=== PATIENT | male | born 1970 | race Caucasian/White ===

== ENCOUNTER 2022-04-10 09:35 | Observation (INO) | payer OTHER ==
[2022-04-10 10:34] LABS: Absolute Lymphocytes (CBC) 2.1 K/uL (0.7-4.9); Hematocrit 47.1 % (39.6-49.0); Lymphocytes % 33.8 % (15.3-44.8); MPV 7.5 fL (7.6-11.3); RBC Red Blood Cell Count 5.36 M/uL (4.33-5.43)
--- NOTE | 2022-04-10 10:44 | RAD REPORT ---
EXAM DESCRIPTION: RAD - Chest Single View - 04/10/2022 10:39 am CLINICAL HISTORY: CHEST PAIN Chest pain. COMPARISON: No comparisons FINDINGS: Portable technique limits examination quality. The lungs are grossly clear. The heart is normal in size. No displaced fractures. IMPRESSION: No acute intrathoracic process suspected.
--- NOTE | 2022-04-10 11:30 | ER ---
Nurse's Notes [facility] Name: Tomas Peng Age: 51 yrs Sex: Male : 1970 Arrival Date: 04/10/2022 Time: 09:38 Bed 14 Private MD: Dominguez Neumann E Diagnosis: Chest pain, unspecified Presentation: 04/10 09:48 Chief complaint: Patient states: left sided chest pain up into left side of neck , iw intermittent since , today was dizzy. Coronavirus screen: At this time, the client does not indicate any symptoms associated with coronavirus-19. Ebola Screen: Patient negative for fever greater than or equal to 101.5 degrees Fahrenheit, and additional compatible Ebola Virus Disease symptoms Patient denies exposure to infectious person. Patient denies travel to an Ebola-affected area in the 21 days before illness onset. No symptoms or risks identified at this time. Initial Sepsis Screen: Does the patient meet any 2 criteria? No. Patient's initial sepsis screen is negative. Does the patient have a suspected source of infection? No. Patient's initial sepsis screen is negative. Risk Assessment: Do you want to hurt yourself or someone else? Patient reports no desire to harm self or others. Onset of symptoms was April 07, 2022. 09:48 Method Of Arrival: Ambulatory iw 09:48 Acuity: AYAN 3 iw Historical: - Allergies: 09:50 No Known Allergies; iw - Home Meds: 09:50 gemfibrozil 600 mg Oral tab 1 tab 2 times per day [Active]; iw - PMHx: 09:50 Hypertensive disorder; iw - Immunization history:: Client reports receiving the 2nd dose of the Covid vaccine. - Social history:: Smoking status: Patient denies any tobacco usage or history of. - Family history:: not pertinent. - Hospitalizations: : No recent hospitalization is reported. Screenin:55 Abuse screen: Denies threats or abuse. Nutritional screening: No deficits noted. tw2 Tuberculosis screening: No symptoms or risk factors identified. Fall Risk None identified. Assessment: 09:55 Reassessment: provider at bedside at this time. tw2 09:56 Pain: Pain began since . tw2 10:00 Pain: Pain radiates to left arm and left side of neck. tw2 10:00 General: Appears in no apparent distress. Behavior is cooperative, appropriate for age, tw2 anxious. Neuro: Level of Consciousness is awake, alert, obeys commands, Oriented to person, place, time, situation. Cardiovascular: Reports chest pain. Respiratory: Airway is patent Respiratory effort is even, unlabored. 10:54 Reassessment: Patient appears in no apparent distress at this time. No changes from tw2 previously documented assessment. Patient and/or family updated on plan of care and expected duration. Pain level reassessed. Patient is alert, oriented x 3, equal unlabored respirations, skin warm/dry/pink. 11:50 Reassessment: Patient appears in no apparent distress at this time. No changes from tw2 previously documented assessment. Patient and/or family updated on plan of care and expected duration. Pain level reassessed. Patient is alert, oriented x 3, equal unlabored respirations, skin warm/dry/pink. 12:50 Reassessment: Patient appears in no apparent distress at this time. No changes from tw2 previously documented assessment. Patient and/or family updated on plan of care and expected duration. Pain level reassessed. Patient is alert, oriented x 3, equal unlabored respirations, skin warm/dry/pink. 13:50 Reassessment: Patient appears in no apparent distress at this time. No changes from tw2 previously documented assessment. Patient and/or family updated on plan of care and expected duration. Pain level reassessed. Patient is alert, oriented x 3, equal unlabored respirations, skin warm/dry/pink. 14:41 Reassessment: Patient appears in no apparent distress at this time. No changes from tw2 previously documented assessment. Patient and/or family updated on plan of care and expected duration. Pain level reassessed. Patient is alert, oriented x 3, equal unlabored respirations, skin warm/dry/pink. 15:30 Reassessment: Patient appears in no apparent distress at this time. No changes from tw2 previously documented assessment. Patient and/or family updated on plan of care and expected duration. Pain level reassessed. Patient is alert, oriented x 3, equal unlabored respirations, skin warm/dry/pink. 16:26 Reassessment: Patient appears in no apparent distress at this time. No changes from tw2 previously documented assessment. Patient and/or family updated on plan of care and expected duration. Pain level reassessed. Patient is alert, oriented x 3, equal unlabored respirations, skin warm/dry/pink. 17:54 Reassessment: Patient appears in no apparent distress at this time. No changes from tw2 previously documented assessment. Patient and/or family updated on plan of care and expected duration. Pain level reassessed. Patient is alert, oriented x 3, equal unlabored respirations, skin warm/dry/pink. pt given supper tray at this time. pt placed in hospital bed at this time for comfort. 18:52 Reassessment: Patient appears in no apparent distress at this time. No changes from tw2 previously documented assessment. Patient and/or family updated on plan of care and expected duration. Pain level reassessed. Patient is alert, oriented x 3, equal unlabored respirations, skin warm/dry/pink. 19:40 Reassessment: Patient appears in no apparent distress at this time. No changes from lg3 previously documented assessment. Patient and/or family updated on plan of care and expected duration. Pain level reassessed. Patient is alert, oriented x 3, equal unlabored respirations, skin warm/dry/pink. Patient states feeling better. 22:55 General: attempted to call report. nurse not available at this time. . lg3 23:26 General: attempted to call report. nurse not available . lg3 Vital Signs: 09:48 BP 130 / 89; Pulse 71; Resp 16; Temp 97.1; Pulse Ox 100% on R/A; Weight 106.59 kg; iw Height 5 ft. 10 in. (177.80 cm); 10:54 BP 138 / 93; Pulse 74; Resp 18; Pulse Ox 95% on R/A; tw2 11:40 BP 143 / 93; Pulse 60; Resp 19; Pulse Ox 98% on R/A; tw2 12:40 BP 145 / 96; Pulse 67; Resp 17; Pulse Ox 95% on R/A; tw2 13:40 BP 145 / 92; Pulse 61; Resp 17; Pulse Ox 99% on R/A; tw2 14:40 BP 138 / 93; Pulse 62; Resp 17; Pulse Ox 97% on R/A; tw2 15:30 BP 139 / 86; Pulse 65; Resp 17; Pulse Ox 97% on R/A; tw2 16:25 BP 143 / 88; Pulse 66; Resp 20; Pulse Ox 99% on R/A; tw2 17:55 BP 150 / 94; Pulse 74; Resp 17; Pulse Ox 99% on R/A; tw2 18:52 BP 126 / 85; Pulse 66; Resp 16; Pulse Ox 97% on R/A; tw2 09:48 Body Mass Index 33.72 (106.59 kg, 177.80 cm) ED Course: 09:38 Patient arrived in ED. am2 09:38 Dominguez Neumann MD is Private Physician. am2 09:50 Triage completed. iw 09:51 Arm band placed on. iw 09:52 Mao Zamorano MD is Attending Physician. rn 09:54 Nichol Medina RN is Primary Nurse. tw2 09:55 Bed in low position. Call light in reach. monitor tech on. Pulse ox on. NIBP on. tw2 09:55 Patient maintains SpO2 saturation greater than 95% on room air. tw2 10:03 EKG done, by ED staff, reviewed by Mao Zamorano MD. em1 10:12 Inserted saline lock: 20 gauge in right forearm, using aseptic technique. Blood tw2 collected. 10:42 XRAY Chest (1 view) In Process Unspecified. EDMS 11:29 Tyrone Wylie MD is Hospitalizing Provider. rn 11:36 SARS-COV-2 RT PCR (Document "Date of Onset" if Symptomatic) Sent. tw2 12:09 Singh James is Hospitalizing Provider. rn 19:25 Primary Nurse role handed off by Nichol Medina RN mw2 22:55 No provider procedures requiring assistance completed. Patient admitted, IV remains in lg3 place. intact, No redness/swelling at site. 23:10 Valerie Pruitt, RN is Primary Nurse. lg3 Administered Medications: No medications were administered Medication: 09:56 VIS not applicable for this client. tw2 Outcome: 11:29 Decision to Hospitalize by Provider. rn 22:56 Admitted to Tele accompanied by nurse, via wheelchair, room 430, Report called to Latrell Jerry 22:56 Condition: stable 06/07 01:25 Patient left the ED. lg3 Signatures: Dispatcher [employer] EDMS Aleena Vee RN RN iw Mao Zamorano MD MD rn Martinez, Eric em1 Nichol Medina RN RN tw2 Sasha Handley am2 Gayle Phama mw2 Valerie Pruitt, RN RN lg3 Corrections: (The following items were deleted from the chart) 04/10 17:55 17:54 Reassessment: Patient appears in no apparent distress at this time. No changes tw2 from previously documented assessment. Patient and/or family updated on plan of care and expected duration. Pain level reassessed. Patient is alert, oriented x 3, equal unlabored respirations, skin warm/dry/pink. pt given supper tray at this time. tw2 23:08 22:55 Reassessment: Patient appears in no apparent distress at this time. No changes lg3 from previously documented assessment. Patient and/or family updated on plan of care and expected duration. Pain level reassessed. Patient is alert, oriented x 3, equal unlabored respirations, skin warm/dry/pink. Patient states feeling better. lg3
--- NOTE | 2022-04-10 11:30 | EDPHYS ---
Physician Documentation [facility] Name: Tomas Peng Age: 51 yrs Sex: Male : 1970 Arrival Date: 04/10/2022 Time: 09:38 Bed 14 Private MD: Dominguez Neumann E ED Physician Mao Zamorano HPI: 04/10 11:17 This 51 yrs old Male presents to ER via Ambulatory with complaints of Chest Pain, rn Dizziness, Headache. 11:17 The patient or guardian reports chest pain that is located primarily in the anterior rn chest wall, left. Onset: yesterday. The pain radiates to the left arm, the left shoulder, left neck, left jaw. Associated signs and symptoms: Pertinent positives: dizziness, headache, Pertinent negatives: abdominal pain, shortness of breath, syncope, vomiting. The chest pain is described as aching. Duration: The patient or guardian reports multiple episodes, that are intermittent. Modifying factors: The symptoms are alleviated by nothing. the symptoms are aggravated by nothing. Severity of pain: At its worst the pain was moderate in the emergency department the pain has improved. The patient has experienced a previous episode. The patient has been recently seen by a physician:. Sent by pcp and work for chest pain, left sided, radiates to left arm and jaw/neck, intermittent and last for a few minutes. States has also been having sob with exertion, no longer smokes, and doesn't feel ill. No trauma. . Historical: - Allergies: 09:50 No Known Allergies; iw - Home Meds: 09:50 gemfibrozil 600 mg Oral tab 1 tab 2 times per day [Active]; iw - PMHx: 09:50 Hypertensive disorder; iw - Immunization history:: Client reports receiving the 2nd dose of the Covid vaccine. - Social history:: Smoking status: Patient denies any tobacco usage or history of. - Family history:: not pertinent. - Hospitalizations: : No recent hospitalization is reported. ROS: 11:17 Constitutional: Negative for fever, chills, and weight loss, Eyes: Negative for injury, rn pain, redness, and discharge, Neck: Negative for injury, pain, and swelling, Cardiovascular: + chest pain Respiratory: + sob during exercise Abdomen/GI: Negative for abdominal pain, nausea, vomiting, diarrhea, and constipation, Back: Negative for injury and pain, MS/Extremity: Negative for injury and deformity, Skin: Negative for injury, rash, and discoloration, Neuro: Negative for weakness, numbness, tingling, and seizure. Exam: 11:17 Constitutional: This is a well developed, well nourished patient who is awake, alert, rn and in no acute distress. Head/Face: Normocephalic, atraumatic. Eyes: Periorbital areas with no swelling, redness, or edema. Cardiovascular: Regular rate and rhythm. No pulse deficits. Respiratory: No increased work of breathing, no retractions or nasal flaring. Abdomen/GI: Soft, non-tender Skin: Warm, dry MS/ Extremity: Pulses equal, no cyanosis. Neurovascular intact. Full, normal range of motion. Equal circumference. Neuro: Awake and alert, GCS 15 Vital Signs: 09:48 BP 130 / 89; Pulse 71; Resp 16; Temp 97.1; Pulse Ox 100% on R/A; Weight 106.59 kg; iw Height 5 ft. 10 in. (177.80 cm); 10:54 BP 138 / 93; Pulse 74; Resp 18; Pulse Ox 95% on R/A; tw2 11:40 BP 143 / 93; Pulse 60; Resp 19; Pulse Ox 98% on R/A; tw2 12:40 BP 145 / 96; Pulse 67; Resp 17; Pulse Ox 95% on R/A; tw2 13:40 BP 145 / 92; Pulse 61; Resp 17; Pulse Ox 99% on R/A; tw2 14:40 BP 138 / 93; Pulse 62; Resp 17; Pulse Ox 97% on R/A; tw2 15:30 BP 139 / 86; Pulse 65; Resp 17; Pulse Ox 97% on R/A; tw2 16:25 BP 143 / 88; Pulse 66; Resp 20; Pulse Ox 99% on R/A; tw2 17:55 BP 150 / 94; Pulse 74; Resp 17; Pulse Ox 99% on R/A; tw2 18:52 BP 126 / 85; Pulse 66; Resp 16; Pulse Ox 97% on R/A; tw2 09:48 Body Mass Index 33.72 (106.59 kg, 177.80 cm) iw MDM: 09:52 Patient medically screened. rn 11:27 Differential diagnosis: acute myocardial infarction, acute pericarditis, anxiety, rn coronary artery disease chest wall pain, cholecystitis, Cholelithiasis costochondritis, esophagitis, gastritis, gastroesophageal reflux disease (GERD). Data reviewed: vital signs, nurses notes, lab test result(s), EKG, radiologic studies, plain films, and as a result, I will admit patient. Counseling: I had a detailed discussion with the patient and/or guardian regarding: the historical points, exam findings, and any diagnostic results supporting the discharge/admit diagnosis, lab results, radiology results, the need for further work-up and treatment in the hospital. Response to treatment: There is no appreciated change of the patient's symptoms at this time, and as a result, I will admit patient. Admission orders: after a detailed discussion of the patient's condition and case, the admit orders are written by me. ED course: Given ASA prior to arrival, concerning story, stable vitals, will admit for further cardiac evaluation. Sent in by pcp. No recent cardiac evaluation. . 04/10 10:04 Order name: Basic Metabolic Panel; Complete Time: 13:45 rn 04/10 10:04 Order name: CBC with Diff; Complete Time: 11:27 rn 04/10 10:04 Order name: NT PRO-BNP; Complete Time: 13:45 rn 04/10 10:04 Order name: Troponin HS; Complete Time: 13:45 rn 04/10 11:27 Order name: SARS-COV-2 RT PCR (Document "Date of Onset" if Symptomatic); Complete Time: rn 13:45 04/11 01:03 Order name: Troponin High Sensitivity EDKY 04/10 10:04 Order name: XRAY Chest (1 view); Complete Time: 11:27 rn 04/10 10:04 Order name: EKG; Complete Time: 10:05 rn 04/10 10:04 Order name: Cardiac monitoring; Complete Time: 10:12 rn 04/10 10:04 Order name: EKG - Nurse/Tech; Complete Time: 10:05 rn 04/10 10:04 Order name: IV Saline Lock; Complete Time: 10:12 rn 04/10 10:04 Order name: Labs collected and sent; Complete Time: 10:12 rn 04/10 14:45 Order name: Diet Ada 1800 Rodrigo; Complete Time: 14:45 tw2 04/11 01:03 Order name: Lipid Profile EDKY 04/10 10:04 Order name: O2 Per Protocol; Complete Time: 10:05 rn 04/10 10:04 Order name: O2 Sat Monitoring; Complete Time: 10:05 rn Administered Medications: No medications were administered Disposition Summary: 04/10/22 11:29 Hospitalization Ordered Hospitalization Status: Observation rn Condition: Stable rn Problem: new rn Symptoms: have improved rn Bed/Room Type: Standard rn Provider: Singh James(04/10/22 12:09) rn Location: Telemetry/MedSurg (observation)(04/10/22 22:41) mw Room Assignment: 430(04/10/22 22:41) mw Diagnosis - Chest pain, unspecified 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
--- NOTE | 2022-04-10 13:18 | EKG ---
Test Date: 2022-04-10 Test Time: 09:56:35 Financial Examiner: BRUCE MEASUREMENT RESULTS: Intervals: Rate: 61 LA: 168 QRSD: 96 QT: 406 QTc: 408 Rowlett: P: LA: 168 QRS: 29 T: 39 INTERPRETIVE STATEMENTS: Normal sinus rhythm Normal ECG No previous ECG available for comparison Electronically Signed On 04-10-22 13:17:59 CDT by Natan Marie
[2022-04-10 13:23] LABS: Potassium 4.1 mmol/L (3.5-5.1); Troponin High Sensitivity 5.3 pg/mL (<58.9)
--- NOTE | 2022-04-10 16:05 | P.HP ---
Certification for Inpatient Patient admitted to: Observation With expected LOS: <2 Midnights Practitioner: I am a practitioner with admitting privileges, knowledge of patient current condition, hospital course, and medical plan of care. Services: Services provided to patient in accordance with Admission requirements found in Title 42 Section 412.3 of the Code of Federal Regulations Patient History Date of Service: 04/10/22 Reason for admission: Chest pain History of Present Illness: 51-year-old gentleman with a history of hypertension and hypertriglyceridemia presented emergency department with a complaint of chest pain of onset about 4 days ago, intermittent, maximum intensity 5/10, radiating to the left arm, associated shortness of breath, no known relieving or aggravating factors. Patient recently diagnosed with hypertriglyceridemia and started on gemfibrozil. Initial troponin in the ED is negative. EKG demonstrates sinus rhythm, no significant ST changes. Patient with significant CAD risk factors. He is placed under observation for ACS rule out. Allergies No Known Allergies Allergy (Unverified 04/10/22 14:43) - Past Medical/Surgical History -: Hypertension -: Hypertriglyceridemia - Social History Smoking Status: Former smoker Alcohol use: Yes Place of Residence: Home Review of Systems Other: Except as documented, all other systems reviewed and negative. Physical Examination - Physical Exam General: Alert, In no apparent distress, Oriented x3 HEENT: Mucous membr. moist/pink, Sclerae nonicteric Neck: Supple, JVD not distended Respiratory: Clear to auscultation bilaterally, Normal air movement Cardiovascular: No edema, Regular rate/rhythm, Normal S1 S2 Gastrointestinal: Soft and benign, Non-distended Musculoskeletal: No swelling, No tenderness Integumentary: No rashes Neurological: Normal speech, Normal strength at 5/5 x4 extr Lymphatics: No axilla or inguinal lymphadenopathy - Studies Laboratory Data (last 24 hrs) 04/10/22 10:13: WBC 6.3, Hgb 16.1, Hct 47.1, Plt Count 322 04/10/22 10:13: Sodium 137, Potassium 4.1, BUN 19 H, Creatinine 0.95, Glucose 111 H Assessment and Plan - Problems (Diagnosis) (1) Chest pain Current Visit: Yes Status: Acute (2) Hypertriglyceridemia Current Visit: Yes Status: Acute (3) Hypertension Current Visit: Yes Status: Acute - Plan Placed under observation on the medical floor. Continue to trend troponin Start aspirin, metoprolol Check lipid profile Obtain echocardiogram Continue gemfibrozil. Patient stated he has not tolerated statins in the past. Continue antihypertensive-amlodipine. - Advance Directives Does patient have a Living Will: No Does patient have a Durable POA for Healthcare: No
[2022-04-11] MEDS ORDERED: NITROGLYCERIN 0.4 MG/TAB SL PRN (00:20)
[2022-04-11] MEDS ORDERED: MORPHINE 2 MG/ML SYR IV PRN (00:20)
[2022-04-11] MEDS: METOPROLOL TAR 25 MG TAB PO SCH ×2 (00:57→09:48)
[2022-04-11 01:03] LABS: Troponin High Sensitivity 6.5 pg/mL (<58.9)
[2022-04-11 01:50] VITALS: O2SAT 97
[2022-04-11 02:36] VITALS: BMI 33.7
[2022-04-11 04:21] LABS: Absolute Lymphocytes (CBC) 1.9 K/uL (0.7-4.9); Hematocrit 45.8 % (39.6-49.0); Lymphocytes % 37.4 % (15.3-44.8); MPV 7.2 fL (7.6-11.3)
[2022-04-11] MEDS ORDERED: ENOXAPARIN 40 MG/0.4 ML SQ SCH (09:00)
[2022-04-11] MEDS ORDERED: ASPIRIN EC 81 MG TAB PO SCH (09:00)
--- NOTE | 2022-04-11 10:32 | P.DS ---
Admission Date: 04/10/22 Discharge Date: 04/11/22 Disposition: ROUTINE DISCHARGE Discharge Condition: GOOD Reason for Admission: Chest pain Consultations: Cardiology - Dr. Bowman Brief History of Present Illness: 51-year-old gentleman with a history of hypertension and hypertriglyceridemia presented emergency department with a complaint of chest pain of onset about 4 days ago, intermittent, maximum intensity 5/10, radiating to the left arm, associated shortness of breath, no known relieving or aggravating factors. Patient recently diagnosed with hypertriglyceridemia and started on gemfibrozil. Initial troponin in the ED is negative. EKG demonstrates sinus rhythm, no significant ST changes. Patient with significant CAD risk factors. He is placed under observation for ACS rule out. Hospital Course: Problem List Chest PAin Hypertriglyceridemia HTN Patient's chest pain was evaluated by chest x-ray, troponins, and ekg which were all normal. Cardiology was consulted. Deemed patient stable and low risk. Recommended follow up in the office in the next ~week, with plans for a cardiac stress test soon. Please call Dr. Bowman's / Frank's office in the next day. Patient's pain seemed mostly exertional, but did report burping seemed to relieve some of the pain. He also reported sensation of heart rhythm temporarily changing for seconds to minutes. Discussed following up with Cardiology, with plans for stress test as noted above and consideration of cardiac event monitor. No irregular rhythms/beats were noted on cardiac monitoring during hospitalization. Etiology of this chest pain does not seem to be related to GERD, however, patient does eat lots of spicy foods. To consider daily omeprazole for ~2 months to see if this helps. Consider follow up with GI if cardiac workup is all normal. Vital Signs/Physical Exam: Temp Pulse Resp BP Pulse Ox 97.7 F 70 16 121/72 96 04/11/22 08:00 04/11/22 09:48 04/11/22 08:00 04/11/22 09:48 04/11/22 08:00 General: Alert, In no apparent distress, Oriented x3 HEENT: Mucous membr. moist/pink, Sclerae nonicteric Neck: Supple, No LAD Respiratory: Clear to auscultation bilaterally Cardiovascular: No edema, Regular rate/rhythm Gastrointestinal: Soft and benign, Non-distended, No tenderness Musculoskeletal: No tenderness Integumentary: No rashes Neurological: Normal speech, Normal affect Laboratory Data at Discharge: WBC 5.1 K/uL (4.3-10.9) D 04/11/22 04:01 Hgb 15.4 g/dL (13.6-17.9) 04/11/22 04:01 Hct 45.8 % (39.6-49.0) 04/11/22 04:01 Plt Count 289 K/uL (152-406) 04/11/22 04:01 Sodium 138 mmol/L (136-145) 04/11/22 04:01 Potassium 4.0 mmol/L (3.5-5.1) 04/11/22 04:01 BUN 20 mg/dL (7-18) H 04/11/22 04:01 Creatinine 0.92 mg/dL (0.55-1.3) 04/11/22 04:01 Glucose 98 mg/dL (74-106) 04/11/22 04:01 Triglycerides 309 mg/dL (<150) H 04/11/22 00:22 Triglycerides Cancelled 04/11/22 00:22 Cholesterol 199 mg/dL (<200) 04/11/22 00:22 Cholesterol Cancelled 04/11/22 00:22 HDL Cholesterol 37 mg/dL (40-60) L 04/11/22 00:22 HDL Cholesterol Cancelled 04/11/22 00:22 Cholesterol/HDL Ratio 5.38 04/11/22 00:22 Cholesterol/HDL Ratio Cancelled 04/11/22 00:22 Home Medications: Amlodipine [Norvasc*] 1 tab PO DAILY 04/11/22 gemfibroziL [Gemfibrozil] 600 mg PO BID 04/11/22 Diet: AHA Activity: Ad dean Followup: Gilmer Bowman MD [ACTIVE - CAN ADMIT] - 1 Day (Dr Bowman and Dr Marie share office. call tomorrow for apointment for potential testing.) Elivra Terrazas PAC [Primary Care Provider] - 1-2 Days (call for an apointment) Time spent managing pt's care (in minutes): 40
--- NOTE | 2022-04-11 12:34 | ECHO ---
HEIGHT: 5 ft 10 in WEIGHT: 235 lb 0 oz DATE OF STUDY: 04/11/[address]: ugo barrientos 2-DIMENSIONAL: YES M.MODE: YES DOPPLER: YES COLOR FLOW: YES TDS: PORTABLE: YES DEFINITY: BUBBLE STUDY: DIAGNOSIS: CHEST PAIN CARDIAC HISTORY: CATHERIZATION: NO SURGERY: NO PROSTHETIC VALVE: NO PACEMAKER: NO MEASUREMENTS (cm) DIASTOLIC (NORMALS) SYSTOLIC (NORMALS) IVSd 1.1 (0.6-1.2) LA Diam 3.8 (1.9-4.0) LVEF 55-60% LVIDd 5.2 (3.5-5.7) LVIDs 3.7 (2.0-3.5) %FS % LVPWd 1.3 (0.6-1.2) Ao Diam 2.7 (2.0-3.7) 2 DIMENSIONAL ASSESSMENT: RIGHT ATRIUM: NORMAL LEFT ATRIUM: NORMAL RIGHT VENTRICLE: NORMAL LEFT VENTRICLE: NORMAL TRICUSPID VALVE: NORMAL MITRAL VALVE: NORMAL PULMONIC VALVE: NORMAL AORTIC VALVE: NORMAL PERICARDIAL EFFUSION: NONE AORTIC ROOT: NORMAL LEFT VENTRICULAR WALL MOTION: DOPPLER/COLOR FLOW: COMMENTS: NORMAL 2-DIMENSIONAL ECHOCARDIOGRAM WITH DOPPLER. NO WALL MOTION ABNORMALITY. NO EFFUSION. TECHNOLOGIST: NENA BUTLER
[2022-04-11 12:35] VITALS: BP 117/72; TEMP 97.5
--- NOTE | 2022-04-13 14:04 | CON ---
Date of Consultation: 04/11/[address] Zamorano on 04/10/2022. I saw him on 04/11/2022. Reason For Consultation: Chest pain. History Of Present Illness: Mr. Peng is a 51-year-old male. Has a history of hypertriglyceridemia and hypertension for which he takes Lopid and metoprolol at home. Comes in with left lateral wall c hest pain radiating to the left arm and the back of the neck without any nausea, vomiting, diaphoresi s, PND, orthopnea, pedal edema, palpitation, or syncope. Pain can be exertional and nonexertional. Denied any fever or chills or cough. Has ruled out for an [place]. Past Medical History: As stated above. Allergies: NONE. Review of Systems: Negative. Social History: Negative. Family History: Noncontributory. Medications: Listed earlier. Physical Examination: Vital Signs: Stable. He was afebrile. HEENT: Negative. Neck: Supple with no bruit. Chest: Clear. Cardiac: Revealed a regular rhythm and rate. No murmurs, gallops, or rubs. Abdomen: Benign. Extremities: Revealed no clubbing, cyanosis, or edema. Diagnostic Data: Normal. He had a normal EKG, normal x-ray, normal troponin, normal BNP. Impression And Plan: Atypical chest pain, sometimes exertional, concerned because it goes to the lef t arm. He has high risk factors including his age, his gender, his weight. He has triglyceridemia. He has hypertension. I recommend he get an outpatient MPI as soon as possible. He can go home otingris GUTIÉRREZ/LIANA Voice ID: [id number] Report ID: [id number]
== END 2022-04-11 12:52 | disposition home or self-care (01) ==
LOC: ER 09:35 → ERHOLD 14:23 → 4TH 22:51
PROVIDERS: ADMIT Internal Medicine; ATTEND Hospitalist
DX: R07.9 Chest pain, unspecified (principal); I10 Essential (primary) hypertension; E78.1 Pure hyperglyceridemia; R06.02 Shortness of breath; Z87.891 Personal history of nicotine dependence; Z79.899 Other long term (current) drug therapy; Z20.822 Contact with and (suspected) exposure to COVID-19
CPT/HCPCS: 93005; 93306; 85025 ×2; 80048 ×2; 36415; 80061; 84484 ×4; 83880; 71045; 99285; U0003; J1650; G0378 ×2

== ENCOUNTER 2022-05-01 11:00 | Day surgery (SDC) | payer OTHER ==
[2022-04-28 13:52] LABS: Absolute Lymphocytes (CBC) 2.1 K/uL (0.7-4.9); Lymphocytes % 43.5 % (15.3-44.8); MCV 89.4 fL (80-100); MPV 7.4 fL (7.6-11.3); RBC Red Blood Cell Count 5.14 M/uL (4.33-5.43)
[2022-04-28 13:56] LABS: Protime INR 1.03
[2022-04-28 14:02] LABS: Potassium 3.8 mmol/L (3.5-5.1)
[2022-04-28 14:30] LABS: SARS-CoV-2 Antigen Rapid Res Negative (Negative)
[~2022-05-01 11:00] MED LIST: NA CHLORIDE 0.9% 500 ML ONE
[2022-05-01] MEDS ORDERED: HEPA 1000U/500MLS 2,000 UNIT/1,000 ML BAG IV ONE (12:30)
[2022-05-01] MEDS ORDERED: FENTANYL CITR 100 MCG/2 ML ONE (12:52)
[2022-05-01] MEDS ORDERED: CLOPIDOGREL 75 MG TABLET ONE (12:53)
[2022-05-01] MEDS ORDERED: HEPARIN 5000 UNIT/ML 1 ML VIAL ONE (12:53)
[2022-05-01] MEDS ORDERED: ATROPINE SULF 1 MG/10 ML SYR IV ONE (12:54)
[2022-05-01] MEDS ORDERED: ASPIRIN 325 MG TAB ONE (12:54)
[2022-05-01] MEDS ORDERED: TICAGRELOR 90 MG TABLET PO ONE (12:54)
[2022-05-01] MEDS ORDERED: MIDAZOLAM HCL 2 MG/2 ML INJ ONE (13:04)
[2022-05-01] MEDS ORDERED: HEPARIN 10,000 UNIT/10 ML VIAL IV ONE (14:11)
[2022-05-01] MEDS ORDERED: HEPA 1000U/500MLS 1,000 UNIT/500 ML BAG IV ONE (14:23)
[2022-05-01 17:01] VITALS: BP 127/75; O2SAT 100
--- NOTE | 2022-05-01 20:40 | OP ---
Date of Procedure: 05/01/2022 Surgeon: BOBBI PONCE Procedures Performed: 1.Selective coronary angiogram. 2.IVUS of the LAD. 3.PCI of severe proximal to mid LAD stenosis, used 4.0 x 38 mm Synergy drug-eluting stent. Access: Right radial artery 6-Angolan closed with TR band. Indication: Unstable angina. Complications: None. Bleeding: Less than 10 mL. Anesthesia: Total sedation time was 65 minutes. Used fentanyl and Versed in incremental doses. Description Of Procedure: After risks, benefits, and alternatives were explained, the patient agreed to procedure and signed informed consent. The patient was brought into the cardiac catheterization laboratory, prepped and draped in usual sterile fashion. We gave fentanyl and Versed in incremental doses to achieve adequate moderate sedation. Then, I accessed right radial artery using pediatric mi cropuncture kit and took a 5-Angolan [place] 4.0 catheter into the aortic root, engaged left main and ri ght coronary artery, took standard views. Catheter was pushed across the valve into the left ventric le, measured the LVEDP and pullback did not record any gradient. Then, we gave systemic heparin to a ssure ACT level above 250. Gave 180 of Brilinta and 325 mg of aspirin. Then, I took XB3.5 guide 6-F rench into the aortic root, engaged left main and then took a short Run-Through wire into the LAD, pl aced it distally, and took another short Run-Through wire to diagonal 1 branch that has ostial 80% st enosis. I then performed IVUS and confirmed severe disease of the LAD. Then, I used a 4.0 x 15 mm N C balloon, lesion expanded very well. Then, I placed a 4.0 x 38 mm Synergy drug-eluting stent based on the IVUS findings all the way to the ostium of the LAD. Healthy segmental to segment, results wer e excellent and the diagonal branch was still patent and has VERONICA-3 flow, so I decided not to stent i t as it is much smaller vessel. Then, I removed the wires, took final angiogram and sent the IVUS ca theter back and showed a well-opposed stent. No complication. As such, I removed the wires and the guide and the sheath, and placed TR band with good hemostasis. Findings: 1.Left main; largely normal. 2.LAD; severe proximal to mid stenosis, heavily calcified, 80% at least, maximal luminal area by IVU S 3.0 sq mm. Status post successful IVUS guided PCI as above. Then, the LAD is very large, like 4 m m vessel all the way to the apex and wraps around the apex. In the distal portion, there is a focal area of 20% stenosis, diagonal 1 branch is a small size relatively vessel with ostial 80% stenosis, w hich was left alone. 3.Left circumflex is a small vessel, however, it is a huge OM that comes off the proximal circ and i t is a 4 mm vessel again and it is a very dominant and supplies old inferior wall. Has in 1 of the b ranches 40% stenosis and VERONICA-3 flow. 4.RCA is moderate-size vessel and it is codominant and no significant disease. 5.LVEDP being borderline at 30 mmHg. Conclusion: 1.Severe proximal to mid LAD stenosis, status post successful PCI as above. 2.Severe diagonal 1 branch, which will be left to medical management. 3.LVEDP of 13 mmHg. 4.Moderate coronary artery disease elsewhere. Plan: Aspirin, Brilinta, and high-dose statin and I will see him in the office in 1 week. /LIANA Voice ID: [id number] Report ID: [id number]
== END 2022-05-01 17:04 | disposition home or self-care (01) ==
LOC: CCL 11:00
PROVIDERS: ATTEND Internal Medicine
DX: I25.110 Atherosclerotic heart disease of native coronary artery with unstable angina pectoris (principal); I71.4 Abdominal aortic aneurysm, without rupture; I10 Essential (primary) hypertension; E78.5 Hyperlipidemia, unspecified; Z79.899 Other long term (current) drug therapy; Z20.822 Contact with and (suspected) exposure to COVID-19; Z82.49 Family history of ischemic heart disease and other diseases of the circulatory system
CPT/HCPCS: 36415; 80048; 85025; 85347; 85610; 85730; 87811; 92928; 92978; 93458; C1725; C1893; J1644; J2250; J3010; J7040; Q9967